=== PATIENT | female | born 1985 | race Hispanic/Latino ===

== ENCOUNTER 2017-12-04 12:41 | Emergency (ER) | payer MEDICARE ==
[2017-12-04 12:48] VITALS: BMI 23.5
[2017-12-04 13:04] VITALS: RESP 18
[2017-12-04] MEDS ORDERED: Naproxen 500 MG TAB PO ONE ×2 (13:05→13:10)
--- NOTE | 2017-12-04 14:01 | ED PDOC ---
Upper Extremity Pain/Injury Time Seen by Provider: 12/04/17 12:59 Chief Complaint (Nursing): Upper Extremity Problem/Injury Chief Complaint (Provider): Upper Extremity Problem/Injury History Per: Patient History/Exam Limitations: no limitations Onset/Duration Of Symptoms: Hrs (x2) Additional Complaint(s): Patient is a 32 y/o female with no significant past medical history who presents to the ED complaining of left elbow pain, onset x2 days ago. Patient reports that x2 days ago on Thursday she was drinking alcohol and accidentally fell off her bed landing on her left elbow. She reports the pain has been controlled wit Advil but she has been unable to fully extend her left elbow prompting ED visit. She denies any numbness, tingling, other injuries, head injury, headache, chest pain, abdominal pain, or loss of consciousness. Past Medical History Reviewed: Historical Data, Nursing Documentation, Vital Signs Vital Signs: Last Vital Signs Temp 98 F 12/04/17 12:58 Pulse 90 12/04/17 12:58 Resp 18 12/04/17 12:58 BP 117/82 12/04/17 12:58 Pulse Ox 98 12/04/17 12:58 - Medical History PMH: No Chronic Diseases - Surgical History Surgical History: No Surg Hx - Family History Family History: States: Unknown Family Hx - Social History Alcohol: Occasional - Allergies Allergies/Adverse Reactions: Allergies Allergy/AdvReac Type Severity Reaction Status Date / Time No Known Allergies Allergy Verified 12/04/17 12:58 Review of Systems ROS Statement: Except As Marked, All Systems Reviewed And Found Negative Constitutional: Negative for: Fever Cardiovascular: Negative for: Chest Pain Gastrointestinal: Negative for: Abdominal Pain Musculoskeletal: Positive for: Arm Pain (left elbow) Neurological: Negative for: Numbness (or tingling), Headache, Other (LOC) Physical Exam - Reviewed Nursing Documentation Reviewed: Yes Vital Signs Reviewed: Yes - Physical Exam Appears: Positive for: No Acute Distress Head Exam: Positive for: ATRAUMATIC, NORMOCEPHALIC Pulses-Radial (L): 2+ Pulses-Radial (R): 2+ Extremity: Positive for: Tenderness (mild at left elbow), Capillary Refill (<2 seconds), Swelling (mild at left elbow). Negative for: Normal ROM (limited in left elbow), Deformity, Other (break in skin integrity; shoulder tenderness; wrist or hand tenderness) Neurologic/Psych: Positive for: Alert, Oriented. Negative for: Motor/Sensory Deficits - ECG O2 Sat by Pulse Oximetry: 98 (RA) Pulse Ox Interpretation: Normal Medical Decision Making Medical Decision Making: Time: 13:05 Initial Impression: Elbow injury Initial Plan: --RAD - elbow left 3 views --Naproxen 500 mg PO --reevaluation 1413 Dr. Rm viewed x-rays and recommends CT. CT L elbow w/o contrast ordered. Pt. informed of plan and agrees. Pending call back from Dr. Panchito Villarreal Pt. in no distress. States she does not want any more pain meds. Offered Rx for narcotic meds but prefers to not take any narcotics. States Advil is providing good analgesia at home. Pt. searched on [place] [employer] aware and show no previous narcotic Rx in the last [address]: Nondisplaced coronoid process fracture proximal left ulna without additional fracture appreciable. Radial head appears intact. No subluxation or dislocation. Case d/w Dr. Panchito Villarreal who agrees with care and states pt. can f/u in his office. Pt. informed of plan and given CD copy of xray and CT. Scribe Attestation: Documented by Igor Wheatley, acting as a scribe for Cortes Boucher PA-C Provider Scribe Attestation: All medical record entries made by the Scribe were at my direction and personally dictated by me. I have reviewed the chart and agree that the record accurately reflects my personal performance of the history, physical exam, medical decision making, and the department course for this patient. I have also personally directed, reviewed, and agree with the discharge instructions and disposition. Procedures - Time-Out Type of Procedure: Splint placement Site of Procedure: L arm Correct Patient: Yes Correct Procedure: Yes X-Ray Marked: Yes FADY/Penny: Sander K[place]OOR - Splinting Location: L elbow Hand-Made Type: orthoglass Splint: orthoglass posterior elbow Pre-Proc Neuro Vasc Exam: normal Post-Proc Neuro Vasc Exam: normal Progress: Sling applied as well by PA. Disposition - Clinical Impression Clinical Impression: Fx coronoid proc ulna-closed - Patient ED Disposition Is Patient to be Admitted: No - Disposition Referrals: Justine Tam MD [Staff Provider] - [facility] [place] [Outside] Disposition: Routine/Home Disposition Time: 15:57 Condition: STABLE Additional Instructions: DIETER SUNG, thank you for letting us take care of you today. Your provider was Armando Rm III, DO and you were treated for FALL,LT ARM PAIN. The emergency medical care you received today was directed at your acute symptoms. If you were prescribed any medication, please fill it and take as directed. It may take several days for your symptoms to resolve. Return to the Emergency Department if your symptoms worsen, do not improve, or if you have any other problems. Please contact your doctor or call one of the physicians/clinics you have been referred to that are listed on the Patient Visit Information form that is included in your discharge packet. Bring any paperwork you were given at discharge with you along with any medications you are taking to your follow up visit. Our treatment cannot replace ongoing medical care by a primary care provider outside of the emergency department. Thank you for allowing the [facility] team to be part of your care today. If you had an X-Ray or CT scan: A Radiologist will review the ED reading if any change in treatment is needed we will contact you. If you had a blood, urine, or wound culture: It will take several days for the results, if any change in treatment is needed we will contact you. If you had an STI test: It will take 48 hours for the results. Please call after 1 week if you have not heard back. Instructions: Elbow Fracture (DC) Forms: [facility] ([place]), [facility] ED School/Work Excuse Print Language: THAI
--- NOTE | 2017-12-04 14:21 | RAD ---
Date of service: 12/04/2017 PROCEDURE: Radiographs of the left elbow. HISTORY: trauma COMPARISON: No prior. FINDINGS: BONES: No displaced fractures appreciated however anterior as well as posterior joint effusions are identified due to fat pad displacement and an underlying fracture would be difficult to completely exclude. Clinically correlate further. CT can be performed for follow-up as indicated. JOINTS: No subluxation or dislocation. No osteoarthritis. SOFT TISSUES: As above. JOINT EFFUSION: As above. OTHER FINDINGS: None IMPRESSION: No displaced fracture identified. No dislocation or subluxation. However, fat pad elevation anteriorly as well as posteriorly is present indicating effusions and may reflect an underlying nondisplaced fracture. CT can be performed as clinically warranted for follow-up.
--- NOTE | 2017-12-04 15:40 | CT ---
Date of service: 12/04/2017 PROCEDURE: LEFT ELBOW CT EXAMINATION WITHOUT CONTRAST HISTORY: attention LEFT elbow COMPARISON: Left elbow [id number]/20/2018. TECHNIQUE: A volumetric CT acquisition was performed through the left elbow without intravenous contrast. Reformatted datasets provided in sagittal axial and coronal planes including surface rendered series. FINDINGS: There is a nondisplaced fracture of the coronoid process of the proximal left ulna. No dislocation or subluxation. No additional fractures identified throughout the remainder of the left elbow. The radial head appears intact. No suspicious destructive bony lesion appreciable. Mild anterior and posterior joint effusions are identified displacing local soft tissues. Soft tissues are otherwise unremarkable. IMPRESSION: Nondisplaced coronoid process fracture proximal left ulna without additional fracture appreciable. Radial head appears intact. No subluxation or dislocation.
[2017-12-04 16:22] VITALS: BP 122/68; PULSE 78; TEMP 98.1
[2017-12-04 17:57] VITALS: O2SAT 98
== END 2017-12-04 16:22 | disposition home or self-care (01) ==
LOC: H.ER 12:41
DX: S52.042A Displaced fracture of coronoid process of left ulna, initial encounter for closed fracture (principal); W06.XXXA Fall from bed, initial encounter; Y92.003 Bedroom of unspecified non-institutional (private) residence as the place of occurrence of the external cause